=== PATIENT | male | born 1940 | race Caucasian/White ===

== ENCOUNTER → 2020-09-22 | Outpatient (CLI) | payer MEDICARE, OTHER ==
[2015-12-09 09:17] VITALS: BP 126/86
[~2020-09-22] MED LIST: ASPI-630 PO; ATOR40TA59 PO; CETI10TA16 PO; CIPR500T94 PO; LOSA50TA86 PO; MULT-245 PO; OMEG500C3 PO; OXYC1TAB7 PO; PHEN-318 PO; PHEN100T82 PO; SENN8.6T99 PO; SILD100T PO; TADA5TAB PO
== END ==
LOC: LAB 07:37
PROVIDERS: ATTEND Nurse Practitioner Family
DX: R79.89 Other specified abnormal findings of blood chemistry (principal)
CPT/HCPCS: 80061